=== PATIENT | female | born 1940 | race Two or more races ===

== ENCOUNTER 2017-08-23 11:51 | Inpatient (IN) | payer OTHER ==
[~2017-08-23] VITALS: Ht 157.5 cm; Wt 55.8 kg
[2017-08-23] MEDS ORDERED: COZAAR50 MG PO (13:49)
== END 2017-09-02 16:22 | DRG 470 ==
LOC: SURH 08-31 06:30 → O/R 08-31 06:30 → SURH 08-31 09:45
PROVIDERS: Orthopaedic Surgery
PROC: 0SRB0JZ Replacement of Left Hip Joint with Synthetic Substitute, Open Approach (ICD-10-PCS; principal; 2017-08-31 09:45)
DX: M16.12 Unilateral primary osteoarthritis, left hip (principal); D62 Acute posthemorrhagic anemia; I10 Essential (primary) hypertension; J45.998 Other asthma; Z53.1 Procedure and treatment not carried out because of patient's decision for reasons of belief and group pressure

== ENCOUNTER → 2017-09-13 | Emergency (ER) | payer OTHER ==
[~2017-09-13] VITALS: Ht 157.5 cm; Wt 55.8 kg
[~2017-09-13] MED LIST: ARICEPT10 MG PO; BACLOFEN20 MG PO; CIPRO500 MG PO; COZAAR50 MG PO; NAMENDA10 MG PO; PROTONIX40 MG PO; PYRIDIUM100 M1 PO
== END | disposition home or self-care (01) ==
LOC: ER 11:25
DX: N39.0 Urinary tract infection, site not specified (principal); B96.20 Unspecified Escherichia coli [E. coli] as the cause of diseases classified elsewhere

== ENCOUNTER 2020-07-07 07:48 | Emergency (ER) | payer OTHER ==
[~2020-07-07] VITALS: Ht 157.5 cm; Wt 59.0 kg
[2020-07-07] MEDS ORDERED: SIMVASTATIN5 MG (08:12)
[2020-07-07] MEDS ORDERED: CHILDREN'S ASPI81 MG (08:13)
[2020-07-07] MEDS ORDERED: PLAVIX75 MG (08:13)
[2020-07-07] MEDS ORDERED: ENDOCET 7.5-321 EACH (08:14)
[2020-07-07] MEDS ORDERED: ISOSORBIDE DINI30 MG (08:14)
[2020-07-07] MEDS ORDERED: BACTRIM DS TAB1 EACH PO (14:39)
== END 2020-07-07 15:45 | disposition home or self-care (01) ==
LOC: ER 07:48
DX: N39.0 Urinary tract infection, site not specified (principal); R31.29 Other microscopic hematuria; N28.1 Cyst of kidney, acquired; Z03.818 Encounter for observation for suspected exposure to other biological agents ruled out